=== PATIENT | female | born 2000 | race Caucasian/White ===

== ENCOUNTER 2021-11-07 16:41 | Emergency (ER) | payer OTHER ==
[~2021-11-07 16:41] MED LIST: KEFLEX CAP 500500 MG PO
[2021-11-07 20:15] LABS: HEMOGLOBIN 13.2 gm/dl (12.3-15.3); RED BLOOD COUNT 4.65 M/UL (4.00-5.10); WHITE BLOOD COUNT 11.6 K/UL (4.5-11.0)
[2021-11-07 20:38] LABS: BUN/CREATININE RATIO 12 (0-10)
[2021-11-07] MEDS ORDERED: KEPPRA500 MG PO (23:52)
== END 2021-11-08 | disposition home or self-care (01) ==
LOC: ER1 16:41
PROVIDERS: Family Medicine
DX: R56.9 Unspecified convulsions (principal); Z90.89 Acquired absence of other organs; Z88.2 Allergy status to sulfonamides
CPT/HCPCS: 70450; 80053; 81001; 84703; 85025; 99285